=== PATIENT | male | born 1985 | race Caucasian/White ===

== ENCOUNTER 2025-02-09 20:54 | Emergency (ER) | payer OTHER, SELFPAY ==
[2025-02-09 21:19] VITALS: BP 148/75; PULSE 91; RESP 17; TEMP 36.6; O2SAT 97; BMI 25.7
--- NOTE | 2025-02-09 22:59 | ED_ITS ---
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 Last tetanus shot more than 5 years ago. No left eye injuries. No facial injuries. No anterior neck injuries. No trouble swallowing or moving neck. Related Data Allergies Allergy/AdvReac Type Severity Reaction Status Date / Time No Known Drug Allergies Allergy Verified 02/09/25 21:19 Patient History Social History Smoking Status: Current every day smoker Smoking Status: Current every day smoker tobacco type: vaping Exam Narrative Exam Narrative: GENERAL: Well-developed patient, in mild distress. HEAD: Atraumatic. Normocephalic. EYES: Injected sclera right side. Proparacaine drops with fluorescein stain. Wood's lamp evaluation shows large abrasion considerably central and covering most of the pupil, no obvious aqueous flow, anterior chamber not depressed. No obvious penetrating injury to the anterior chamber or globe. Pupil appears intact. ENT: Nose without bleeding, purulent drainage. Throat without erythema, tonsillar hypertrophy or exudate. Airway patent. NECK: Trachea midline. Non tender CARDIOVASCULAR: Regular rate and rhythm without murmurs, gallops, or rubs. RESPIRATORY: Clear to auscultation. Breath sounds equal bilaterally. No wheezes, rales, or rhonchi. GASTROINTESTINAL: Abdomen soft, non-tender, nondistended. EXTREMITIES: No edema or joint tenderness. BACK: Nontender without deformity or crepitance. No flank tenderness. NEURO: AOx3. Motor functions grossly nonfocal. SKIN: No rash or erythema of visible areas Initial Vital Signs Initial Vital Signs: Vital Signs Temperature 98 F 02/09/25 21:19 Pulse Rate 91 H 02/09/25 21:19 Respiratory Rate 17 02/09/25 21:19 Blood Pressure 148/75 H 02/09/25 21:19 Pulse Oximetry 97 02/09/25 21:19 Oxygen Delivery Method Room Air 02/09/25 21:19 Course Orders Ordered: Discontinued Medications Hydrocodone Bitart/Acetaminophen (Hydrocodone/Acet 5/325 Tablet) 1 tab PO NOW ONE Stop: 02/09/25 23:14 Last Admin: 02/09/25 23:41 Dose: 1 tab Documented By: CHOLO Hydrocodone Bitart/Acetaminophen (Hydrocodone/Acet 5/325 Prepack) 1 bottle MISC DIRECTED ONE Stop: 02/09/25 23:14 Last Admin: 02/10/25 00:18 Dose: 1 bottle Documented By: CHOLO Diphtheria/Tetanus/Acell Pertussis (Tet,Diph,Pertuss(Acell),Vac/Pf 0.5 Ml Syringe) 0.5 ml IM .ONCE ONE Stop: 02/09/25 23:14 Last Admin: 02/09/25 23:41 Dose: 0.5 ml Documented By: CHOLO Erythromycin (Erythromycin Ophth 1 Gm Oint) 1 applic EYE-RIGHT NOW ONE Stop: 02/09/25 23:45 Last Admin: 02/10/25 00:20 Dose: 1 applic Documented By: CHOLO Fluorescein Sodium (Fluorescein 1 Mg Strip) 1 mg EYE-RIGHT NOW PRN PRN Reason: chemical burn/foreign body Proparacaine HCl (Proparacaine 0.5% Ophth [place]) 4 drops EYE-RIGHT PRN PRN PRN Reason: chemical burn/foreign body Last Admin: 02/10/25 00:19 Dose: 4 drop Documented By: CHOLO Vital Signs Vital signs: Vital Signs - 8 hr 02/10/25 00:40 Pulse Rate 88 Respiratory Rate 16 Blood Pressure 140/73 Pulse Oximetry 99 Oxygen Delivery Method Room Air Medical Decision Making Lab Data Labs: Point of Care Testing pH,Tear Film,POC Measurement pH 7 Point of care testing: Point of Care Testing pH,Tear Film,POC Measurement pH 7 [facility] Narrative Medical decision making narrative: 39-year-old male with right eye pain and foreign body sensation after cutting cement at his [employer]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 Fluorescein examination with Wood's lamp shows right corneal abrasion. IM Tdap tetanus update. Oral hydrocodone/APAP. I irrigation further. Check eye PH before and after. Procedure: eye irrigation. PH 7 measured by nursing, had initial 1 L irrigation saline, Re application of proparacaine drops, an additional 1 L irrigation saline. Repeat PH unchanged, still normal range. Erythromycin antibiotic ointment applied, dispensed. IM Tdap update. Advised follow up with ophthalmology clinic later this morning here at [facility], Dr. Martinez or Dr. Little in clinic for further evaluation. Home pack hydrocodone/APAP. Discharged home. Follow up with eye clinic. Return precautions discussed. Discharge Plan Departure Patient Disposition: Home Clinical Impression: Corneal abrasion, right Activity Restrictions/Additional Instructions: Foreign body sensation eye injury cutting concrete at work earlier today. On- site ocular irrigation. Proparacaine eyedrops placed with fluorescein contrast, on magnification view there is a large corneal abrasion to the right side that covers most of your pupil. The anterior chamber and globe appear intact. PH normal range before and after saline 2 L irrigation, non acidic non basic. Oral pain medication given, home pack of hydrocodone/acetaminophen also provided for discharge. Advised further evaluation in eye clinic tomorrow during regular hours on Thursday. Contact information given for Dr. Martinez and Dr. Little who or part of this clinic here on campus. Come to their clinic at 8:00 a.m. in the morning to be worked in for further evaluation. Take oral antibiotic erythromycin to the right eye, apply 3 times daily. Recheck in eye clinic later tomorrow morning. Return to this/nearest emergency department for any change worsening symptoms or any concerns prior. Referrals: Edita Little MD [Physician, Ophthalmology] Mla Martinez MD [Physician, Ophthalmology] Ja Ibarra MD [Primary Care Provider, Family Practice] Stand Alone Forms: Patient Portal/API
[2025-02-09] MEDS: TET,DIPH,PERTUSS(ACELL),VAC/PF 0.5 ML SYRINGE IM (23:41)
[2025-02-10] MEDS: PROPARACAINE 0.5% OPHTH SOL 4 DROPS EYE-RIGHT (00:19)
[2025-02-10] MEDS: ERYTHROMYCIN OPHTH 1 GM OINT 1 APPLIC EYE-RIGHT (00:20)
[2025-02-10 00:40] VITALS: BP 140/73; PULSE 88; RESP 16; O2SAT 99
== END 2025-02-10 00:41 | disposition home or self-care (01) ==
PROVIDERS: Emergency Provider Emergency Medicine; PCP Family Medicine
DX: S05.01XA Injury of conjunctiva and corneal abrasion without foreign body, right eye, initial encounter (principal); Z23 Encounter for immunization
CPT/HCPCS: 90471; 99283; 90715